=== PATIENT | female | born 1985 | race Caucasian/White ===

== ENCOUNTER 2018-02-18 11:01 | Emergency (ER) | payer MEDICAID ==
[~2018-02-18] VITALS: Ht 149.9 cm; Wt 55.0 kg
[2018-02-18 11:04] VITALS: BP 130/81; PULSE 88; RESP 16; TEMP 97.2; O2SAT 100
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
[2018-02-18] MEDS ORDERED: KETOROLAC TROMETHAMINE 60 MG/2 ML (IM) VIAL IM ONE (11:30)
[2018-02-18] MEDS ORDERED: ORPHENADRINE INJ 60 MG/2 ML AMP IM ONE (11:30)
[2018-02-18] MEDS ORDERED: ROBA500T PO (11:40)
[2018-02-18] MEDS ORDERED: MEDR4PAK PO (11:40)
== END 2018-02-18 11:52 | disposition home or self-care (01) ==
LOC: PHEFT 11:01
DX: M54.42 Lumbago with sciatica, left side (principal); M54.41 Lumbago with sciatica, right side
CPT/HCPCS: 96372; 99283; J1885; J2360